=== PATIENT | male | born 1975 | race Caucasian/White ===

== ENCOUNTER 2019-04-11 10:06 | Emergency (ER) | payer OTHER ==
[2019-04-11 10:22] VITALS: BP 123/94; PULSE 87; RESP 17; TEMP 98.1
[2019-04-11] MEDS ORDERED: PROPARACAINE 0.5% OPHTH DROPS 15 ML BTL LEFT EYE STA (10:45)
--- NOTE | 2019-04-11 11:16 | ED ---
Eye Problem HPI - General Chief complaint: Eye Problems Stated complaint: metal in eye-[facility] Time Seen by Provider: 04/11/19 10:24 Source: patient Mode of arrival: ambulatory Limitations: no limitations - History of Present Illness Initial comments: Patient is a 44-year-old male presenting to the emergency Department with complaints of a possible piece of metal in his left eye that happened prior to arrival. 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 Patient states he is unable to get it out. Patient denies wearing contacts. Patient denies blurry vision, severe eye pain. Patient states his eye just feels irritated. Patient's tetanus vaccine is up-to-date. Patient has no other complaints at this time. Arrival to ER, vital signs are stable. - Related Data Previous Rx's Medication Instructions Recorded Ciprofloxacin Ophth Soln [Cipro 1 drops LEFT EYE Q6HR 5 Days #1 04/11/19 0.3% Ophth Soln] bottle Allergies Allergy/AdvReac Type Severity Reaction Status Date / Time No Known Allergies Allergy Verified 04/11/19 10:41 Review of Systems ROS Statement: Those systems with pertinent positive or pertinent negative responses have been documented in the HPI. ROS Other: All systems not noted in ROS Statement are negative. Past Medical History Past Medical History: No Reported History History of Any Multi-Drug Resistant Organisms: None Reported Past Surgical History: Orthopedic Surgery Additional Past Surgical History / Comment(s): left knee surgery, left eye surgery Past Psychological History: No Psychological Hx Reported Smoking Status: Current every day smoker Past Alcohol Use History: Occasional Past Drug Use History: None Reported General Exam - General Exam Comments Initial Comments: GENERAL: Well-appearing, well-nourished and in no acute distress. HEAD: Atraumatic, normocephalic. EYES: Pupils equal round and reactive to light, extraocular movements intact, sclera anicteric, conjunctiva are normal. Small metal shaving was removed from left eye. There is a small corneal abrasion to the anterior portion of the eye. ENT: Nares patent, oropharynx clear without exudates. Moist mucous membranes. NECK: Normal range of motion, supple without lymphadenopathy or JVD. LUNGS: Breath sounds clear to auscultation bilaterally and equal. No wheezes rales or rhonchi. HEART: Regular rate and rhythm without murmurs, rubs or gallops. EXTREMITIES: Normal range of motion, no pitting or edema. No clubbing or cyanosis. NEUROLOGICAL: Cranial nerves II through XII grossly intact. Normal speech, normal gait. PSYCH: Normal mood, normal affect. SKIN: Warm, Dry, normal turgor, no rashes or lesions noted. Limitations: no limitations Course Vital Signs 04/11/19 10:19 Temperature 98.1 F Pulse Rate 87 Respiratory 17 Rate Blood Pressure 123/94 O2 Sat by Pulse 98 Oximetry Medical Decision Making - Medical Decision Making Patient is a 44-year-old male presenting with a foreign object in the left eye that happened at work. Small piece of metal shaving was removed from the left eye. There is a small corneal abrasion present seen with the fluorescein stain. Patient's tetanus vaccine is up-to-date. Patient will be started on antibiotic drops, will follow-up with ophthalmology in the next 24-48 hours. Patient is stable for discharge at this time. Return parameters were discussed with the patient he verbalizes understanding. Case discussed with Dr. Rashid. Disposition Clinical Impression: Foreign body of left eye, Corneal abrasion Disposition: HOME SELF-CARE Condition: Stable Instructions (If sedation given, give patient instructions): Corneal Abrasion (ED), Eye Foreign Body (ED) Additional Instructions: Please return to the Emergency Department if symptoms worsen or any other concerns. Use antibiotic eyedrops as discussed. Follow-up with eye doctor in 24-48 hours. Prescriptions: Ciprofloxacin Ophth Soln [Cipro 0.3% Ophth Soln] 1 drops LEFT EYE Q6HR 5 Days #1 bottle Is patient prescribed a controlled substance at d/c from ED?: No Referrals: None,Stated [Primary Care Provider] - 1-2 days Paco Mcclellan MD [STAFF PHYSICIAN] - 1-2 days
== END 2019-04-11 11:17 | disposition home or self-care (01) ==
LOC: EC 10:06
DX: T15.02XA Foreign body in cornea, left eye, initial encounter (principal); F17.200 Nicotine dependence, unspecified, uncomplicated
CPT/HCPCS: 99283